=== PATIENT | female | born 1995 | race Caucasian/White ===

== ENCOUNTER 2019-12-09 20:32 | Emergency (ER) | payer BC ==
[~2019-12-09] VITALS: Ht 165.1 cm; Wt 59.0 kg
[2019-12-09 20:52] VITALS: BP 122/85
[2019-12-09 21:15] LABS: APPEARANCE,URINE CLEAR; BILIRUBIN, URINE NEGATIVE (NEGATIVE); COLOR,URINE PALE YELLOW; GLUCOSE, URINE (UA) NEGATIVE (NEGATIVE); KETONES,URINE NEGATIVE (NEGATIVE); LEUKOCYTE ESTERASE ,URINE NEGATIVE (NEGATIVE); NITRITE,URINE NEGATIVE (NEGATIVE); PH,URINE 7 (4.5-8.0); PROTEIN,URINE NEGATIVE (NEGATIVE); UROBILINOGEN,URINE NORMAL MG/DL (0.0-1.0)
--- NOTE | 2019-12-09 21:21 | Emergency Room Report ---
History of Present Illness General Chief Complaint: Back Pain-No Injury Source: Patient Present Illness HPI 24-year-old female presents after increased right-sided back pain. Sudden onset of symptoms with associated nausea and vomiting. Reports having some episodes of diarrhea over the past few days with multiple episodes of watery diarrhea. Denies any vomiting. Reports recently started on antibiotics for urinary tract infection with started on Macrobid. Allergic to penicillin. Previous appendectomy. Had negative coronavirus testing performed Allergies: Coded Allergies: AMOXICILLIN (Verified Allergy, Unknown, 12/09/19) CEFUROXIME (Verified Allergy, Unknown, 12/09/19) CLAVULANIC ACID (Verified Allergy, Unknown, 12/09/19) MEPERIDINE (Verified Allergy, Unknown, 12/09/19) PENICILLINS (Verified Allergy, Unknown, 12/09/19) COVID-19 Screening Contact w/high risk pt: No Experienced COVID-19 symptoms?: No COVID-19 Testing performed [employer] SU[employer]IST: Yes COVID-19 Screening: Negative COVID-19 COVID-19 Testing Source: 2 DAYS AGO @ [facility] Patient History Past Medical History: see triage record Last Menstrual Period: 2 WEEKS AGO Now: No : 0 Para: 0 Reviewed Nursing Documentation: PMH: Agreed; PSxH: Agreed Nursing Documentation-PMH Hx Asthma: Yes Hx Gastrointestinal Problems: Yes - GERD Review of Systems All Other Systems: negative except mentioned in HPI Physical Exam Vital Signs Date Time Temp Pulse Resp B/P (MAP) Pulse Ox O2 Delivery O2 Flow Rate FiO2 12/09/19 20:38 98.2 92 20 121/80 (94) 99 Room Air Sp02 EP Interpretation: reviewed, normal General Appearance: normal inspection, well appearing, no apparent distress, alert, GCS 15 Head: atraumatic ENT: normal ENT inspection, hearing grossly normal, normal voice Neck: normal inspection, full range of motion, supple, no bony tend Respiratory: normal inspection, lungs clear, normal breath sounds, no respiratory distress, no retraction, no wheezing Cardiovascular #1: regular rate, rhythm, no edema Gastrointestinal: normal inspection, normal bowel sounds, non tender, soft, no guarding, no hernia Genitourinary: no CVA tenderness Musculoskeletal: normal inspection, back normal, normal range of motion Neurologic: alert, responsive, speech normal, normal inspection Psychiatric: normal inspection, judgement/insight normal, mood/affect normal Medical Decision Making Diagnostic Impression: Primary Impression: Back pain Additional Impression: Enteritis ER Course Patient presented for right-sided back pain. Differential diagnosis include was not limited to renal stone, pyelonephritis, enteritis, musculoskeletal low back pain among others. Because of complexity of patient's case laboratory tests and imaging studies were ordered. Patient was noted to have some prior history of appendectomy. Patient had intermittent pain suggesting that this may be intestinal in origin. CT imaging showed no acute findings in the abdomen or pelvis. See radiology report for full details. Patient is given prescription for medications for symptomatic treatment. She was advised to follow-up with primary care physician for recheck. Patient was agreeable with discharge plan was ambulatory without assistance. She was advised to return if worse. This medical record is generated with [employer] director appointment software. There may be some director appointment discrepancies related to use of this software Labs Test 12/09/19 20:52 Urine Color Pale yellow Urine Appearance Clear Urine pH 7 (4.5-8.0) Urine Specific [place] 1.005 (1.005-1.035) Urine Protein Negative (NEGATIVE) Urine Glucose (UA) Negative (NEGATIVE) Urine Ketones Negative (NEGATIVE) Urine Blood Negative (NEGATIVE) Urine Nitrite Negative (NEGATIVE) Urine Bilirubin Negative (NEGATIVE) Urine Urobilinogen Normal MG/DL (0.0-1.0) Urine Leukocyte Esterase Negative (NEGATIVE) Urine HCG, Qualitative Negative (NEGATIVE) Last Vital Signs Date Time Temp Pulse Resp B/P (MAP) Pulse Ox O2 Delivery O2 Flow Rate FiO2 12/09/19 20:52 98.2 79 18 122/85 100 Room Air Status: improved Disposition: HOME, SELF-CARE Condition: Stable Scripts Dicyclomine Hcl* (DICYCLOMINE HCL*) 10 Mg Capsule 10 MG ORAL QID, #20 CAP Prov: Aman Noel MD 12/09/19 Aman Noel MD Dec 09, 2019 21:21
[2019-12-09] MEDS ORDERED: Ketorolac 30mg Inj IV ONE (21:30)
[2019-12-09 21:50] LABS: BASOPHILS % (AUTO) 1.1 % (0.0-2.0); EOSINOPHILS % (AUTO) 1.1 % (0.0-3.0); HEMATOCRIT 43.5 % (37.0-47.0); HEMOGLOBIN 15.1 G/DL (12.0-16.0); LYMPHOCYTES % (AUTO) 30.8 % (20.0-45.0); MEAN CORPUSCULAR VOLUME 95 FL (80-99); MONOCYTES % (AUTO) 7.1 % (1.0-10.0); NEUTROPHILS % (AUTO) 59.9 % (45.0-75.0); PLATELET COUNT 188 K/UL (150-450); RED BLOOD COUNT 4.57 M/UL (4.20-5.40); RED CELL DISTRIBUTION WIDTH 11.2 % (11.6-14.8); WHITE BLOOD COUNT 10.8 K/UL (4.8-10.8)
[2019-12-09 21:58] LABS: ANION GAP 6 mmol/L (5-15); BLOOD UREA NITROGEN 11 mg/dL (7-18); CALCIUM 9.1 MG/DL (8.5-10.1); CARBON DIOXIDE 31 MMOL/L (21-32); CHLORIDE 103 MMOL/L (98-107); CREATININE 1.3 MG/DL (0.55-1.30); POTASSIUM 3.8 MMOL/L (3.5-5.1); SODIUM 140 MMOL/L (136-145)
[2019-12-09 22:03] LABS: ALANINE AMINOTRANSFERASE 26 U/L (12-78); ALBUMIN 3.9 G/DL (3.4-5.0); ALBUMIN/GLOBULIN RATIO 1.2 (1.0-2.7); ALKALINE PHOSPHATASE 57 U/L (46-116); ASPARTATE AMINO TRANSFERASE 19 U/L (15-37); BILIRUBIN,TOTAL 0.3 MG/DL (0.2-1.0)
--- NOTE | 2019-12-09 22:05 | Diagnostic Imaging Report ---
EXAM: CT Abdomen and Pelvis Without Intravenous Contrast CLINICAL HISTORY: ABD PAIN TECHNIQUE: Axial computed tomography images of the abdomen and pelvis without intravenous contrast. CTDI is 3.9 mGy and DLP is 210.70 mGy-cm. One or more of the following dose reduction techniques were used: automated exposure control, adjustment of the mA and/or kV according to patient size, use of iterative reconstruction technique. COMPARISON: No relevant prior studies available. FINDINGS: Lung bases: Unremarkable. ABDOMEN: Liver: Unremarkable. Gallbladder and bile ducts: Gallbladder is contracted. Pancreas: Unremarkable. Spleen: Unremarkable. Adrenals: Unremarkable. Kidneys and ureters: Unremarkable. Stomach and bowel: Moderate amount of stool and gas seen throughout the colon. No bowel wall thickening or obstruction. PELVIS: Appendix: Question previous appendectomy. Bladder: Unremarkable. Reproductive: Unremarkable as visualized. ABDOMEN and PELVIS: Intraperitoneal space: Unremarkable. Bones/joints: No acute fracture. No dislocation. Soft tissues: Unremarkable. Vasculature: Unremarkable. Lymph nodes: Unremarkable. IMPRESSION: No acute findings in the abdomen or pelvis.
[2019-12-09] MEDS ORDERED: Lidocaine 2% Visc 15ml soln ORAL ONE (22:15)
[2019-12-09] MEDS ORDERED: DICYCLOMINE HCL10 MG ORAL (22:15)
[2019-12-09] MEDS ORDERED: Dicyclomine HCl 10mg/5ml oral soln ORAL ONE (22:15)
[2019-12-09 22:53] VITALS: BP 121/78
== END 2019-12-09 22:53 | disposition home or self-care (01) ==
LOC: EMR 21:00
DX: M54.9 Dorsalgia, unspecified (principal); K21.9 Gastro-esophageal reflux disease without esophagitis; Z88.0 Allergy status to penicillin; Z88.8 Allergy status to other drugs, medicaments and biological substances; R11.2 Nausea with vomiting, unspecified; Z90.89 Acquired absence of other organs; R10.9 Unspecified abdominal pain
CPT/HCPCS: 36415; 74176; 80053; 81003; 81025; 83690; 85025; 96361; 96374; 96375; 99284; J1885; J2405; J7030